=== PATIENT | female | born 1955 | race Caucasian/White ===

== ENCOUNTER → 2021-04-10 08:32 | Outpatient (CLI) | payer MEDICARE, OTHER, SELFPAY ==
[2021-04-10 22:09] LABS: COVID19 - ORCAS (NP or Nasal) Negative (Negative)
== END ==
PROVIDERS: PCP Family Medicine; Visit Provider Family Medicine
DX: Z20.822 Contact with and (suspected) exposure to COVID-19 (principal)
CPT/HCPCS: C9803; U0003

== ENCOUNTER → 2021-05-17 08:34 | Outpatient (CLI) | payer MEDICARE, OTHER, SELFPAY ==
[2021-05-17 19:18] LABS: Add Manual Diff / Slide Review NO; Basophils Absolute Auto 0 /uL (0-100); Basophils Percent Auto 0.9 % (0-2); Eosinophils Absolute Auto 200 /uL (0-450); Hematocrit 41.7 % (36-46); Hemoglobin 14.1 g/dL (12.0-16.0); Lymphocytes Absolute Auto 1700 /uL (1100-4500); Lymphocytes Percent Auto 31.6 % (25-40); Mean Corpuscular HGB Conc 33.9 % (30-36); Mean Corpuscular Hemoglobin 29.8 PG (26-34); Monocytes Absolute Auto 400 /uL (0-900); Monocytes Percent Auto 7.5 % (3-14); Neutrophils Absolute Auto 3100 /uL (1500-7000); Platelet Count 231 X10^3/uL (150-400); Red Blood Cell Count 4.74 X10^6/uL (4.0-5.2); Red Cell Distribution Width 12.7 % (11.6-14.8); White Blood Cell Count 5.5 X10^3/uL (4.5-11.0)
[2021-05-17 19:29] LABS: Alanine Aminotransferase 44 IU/L (<35); Albumin 4.3 g/dL (3.5-5.0); Albumin Globulin Ratio 1.5 (1.0-2.8); Alkaline Phosphatase 76 U/L (38-126); Aspartate Aminotransferase 37 IU/L (14-36); BUN Creatinine Ratio 14.8 (6-22); Bilirubin Total 0.5 mg/dL (0.2-1.3); Blood Urea Nitrogen 13 mg/dL (7-17); Calcium 9.4 mg/dL (8.4-10.2); Carbon Dioxide 30 mmol/L (22-32); Chloride 104 mmol/L (98-107); Cholesterol 145 mg/dL (140-199); Estimated Glomerular Filt Rate > 60.0 mL/min (>60); Globulin 2.8 g/dL (1.7-4.1); Glucose 89 mg/dL (80-110); HDL Cholesterol 37 mg/dL (40-60); HEMOLYSIS < 15 (0-50); LDL Cholesterol Calculated 78 mg/dL (<100); Potassium 4.3 mmol/L (3.4-5.1); Sodium 143 mmol/L (137-145); Total Protein 7.1 g/dL (6.3-8.2); Triglycerides 151 mg/dL (35-150)
[2021-05-17 19:31] LABS: Hemoglobin A1C% w Est Avg Glu 5.7 % (4.0-6.0)
[2021-05-17 19:57] LABS: TSH w/ Reflex to FT4 1.77 uIU/mL (0.47-4.68)
[2021-05-18 20:17] LABS: Hep C Virus Ab w/Reflex Quant NEGATIVE s/c (NEGATIVE)
== END ==
PROVIDERS: PCP Physician Assistant; Visit Provider Physician Assistant
DX: I10 Essential (primary) hypertension (principal); M47.812 Spondylosis without myelopathy or radiculopathy, cervical region; Z13.1 Encounter for screening for diabetes mellitus; R53.83 Other fatigue; Z13.220 Encounter for screening for lipoid disorders; R53.82 Chronic fatigue, unspecified; Z11.59 Encounter for screening for other viral diseases
CPT/HCPCS: 80053; 80061; 83036; 84443; 85025; 86803

== ENCOUNTER → 2021-05-19 10:19 | Outpatient (CLI) | payer MEDICARE, OTHER, SELFPAY ==
[2021-05-22 15:15] LABS: Fecal Immunochemical Test Negative (Negative)
== END ==
PROVIDERS: PCP Physician Assistant; Visit Provider Family Medicine
DX: Z12.11 Encounter for screening for malignant neoplasm of colon (principal)
CPT/HCPCS: 82274

== ENCOUNTER → 2024-09-09 09:35 | Outpatient (CLI) | payer MEDICARE, OTHER, SELFPAY ==
[2024-09-09 20:32] LABS: HEMOLYSIS < 15 (0-50); Iron 100 ug/dL (37-170)
[2024-09-09 20:33] LABS: Hemoglobin A1C% w Est Avg Glu 5.4 % (4.0-6.0)
[2024-09-09 20:34] LABS: Alanine Aminotransferase 22 IU/L (<35); Albumin 4.5 g/dL (3.5-5.0); Albumin Globulin Ratio 1.7 (1.0-2.8); Alkaline Phosphatase 76 U/L (38-126); Aspartate Aminotransferase 29 IU/L (14-36); BUN Creatinine Ratio 11.8 (6-22); Bilirubin Total 0.6 mg/dL (0.2-1.3); Blood Urea Nitrogen 10 mg/dL (7-17); Calcium 8.9 mg/dL (8.4-10.2); Carbon Dioxide 28 mmol/L (22-32); Chloride 104 mmol/L (98-107); Cholesterol 193 mg/dL (140-199); Estimated Glomerular Filt Rate > 60 mL/min (>60); Globulin 2.6 g/dL (1.7-4.1); Glucose 85 mg/dL (80-110); HDL Cholesterol 54 mg/dL (40-60); HEMOLYSIS 16 (0-50); LDL Cholesterol Calculated 115 mg/dL (<100); Potassium 4.1 mmol/L (3.4-5.1); Sodium 141 mmol/L (137-145); Total Protein 7.1 g/dL (6.3-8.2); Triglycerides 121 mg/dL (35-150)
[2024-09-09 20:39] LABS: Erythrocyte Sedimentation Rate 4 MM/HR (0-20)
[2024-09-09 20:44] LABS: NT-proBNP (BNP-Adult 18+) 194 pg/mL (<125)
[2024-09-09 20:45] LABS: LDL Cholesterol Direct 100 mg/dL (<100)
[2024-09-09 20:46] LABS: Free T4, Direct Thyroxine 1.07 ng/dL (0.78-2.19)
[2024-09-09 20:52] LABS: Percent Iron Saturation 34 % (15-50); Total Iron Binding Capacity 296 ug/dL (265-497); Transferrin 265 mg/dL (206-381)
[2024-09-09 21:00] LABS: Thyroid Stimulating Hormone 1.89 uIU/mL (0.47-4.68)
[2024-09-09 21:09] LABS: Ferritin 23 ng/mL (11-264)
[2024-09-09 21:36] LABS: Folate 8.2 ng/mL (2.76-20.0); Vitamin B12 275 pg/mL (239-931)
[2024-09-11 04:08] LABS: CRP, High Sensitivity 0.83 mg/L (0.00-3.00)
== END ==
PROVIDERS: Internal Medicine Cardiovascular Disease; PCP Physician Assistant
DX: I49.3 Ventricular premature depolarization (principal); E78.5 Hyperlipidemia, unspecified; D64.9 Anemia, unspecified; R06.02 Shortness of breath; R73.09 Other abnormal glucose; U09.9 Post COVID-19 condition, unspecified; I25.810 Atherosclerosis of coronary artery bypass graft(s) without angina pectoris; I25.10 Atherosclerotic heart disease of native coronary artery without angina pectoris
CPT/HCPCS: 80053; 80061; 82607; 82728; 82746; 82784; 83036; 83540; 83550; 83695; 83721; 83735; 83880; 83921; 84155; 84439; 84443; 84481; 85651; 86140; 86334

== ENCOUNTER → 2024-12-01 11:04 | Outpatient (CLI) | payer MEDICARE, OTHER, SELFPAY ==
[2024-12-01 13:01] LABS: Alanine Aminotransferase 32 IU/L (<35); Albumin 4.6 g/dL (3.5-5.0); Albumin Globulin Ratio 1.6 (1.0-2.8); Alkaline Phosphatase 74 U/L (38-126); Aspartate Aminotransferase 29 IU/L (14-36); BUN Creatinine Ratio 16.3 (6-22); Bilirubin Total 0.5 mg/dL (0.2-1.3); Blood Urea Nitrogen 13 mg/dL (7-17); Calcium 8.9 mg/dL (8.4-10.2); Carbon Dioxide 28 mmol/L (22-32); Chloride 104 mmol/L (98-107); Estimated Glomerular Filt Rate > 60 mL/min (>60); Globulin 2.9 g/dL (1.7-4.1); Glucose 86 mg/dL (70-99); HEMOLYSIS < 15 (0-50); Sodium 140 mmol/L (137-145); Total Protein 7.5 g/dL (6.3-8.2)
--- NOTE | 2024-12-01 14:37 | DI.CT.S_ITS ---
PROCEDURE: CT ABDOMEN PELVIS W CON INDICATIONS: RUQ sensation. hx cholecystectomy TECHNIQUE: After the administration of intravenous contrast, axial sections acquired from the lung bases to the pubic symphysis. Coronal and sagittal reformats were performed. For radiation dose reduction, the following was used: automated exposure control, adjustment of mA and/or kV according to patient size. COMPARISON: None. FINDINGS: Image quality: Diagnostic. Lower Chest: Hyperattenuating material within the distal esophagus and stomach. ABDOMEN: Liver: No solid mass. Gallbladder: Absent. Biliary ducts: No intrahepatic or extrahepatic biliary dilation, accounting for a post cholecystectomy state. Pancreas: No ductal dilation. Spleen: Size is within normal limits. Adrenal Glands: No adrenal nodules. Kidneys and Ureters: No hydronephrosis. No solid mass. No complex renal cystic lesion which requires follow up. Stomach and Bowel: Normal colonic caliber, without significant wall thickening. Normal appendix. No significant diverticular disease. Peritoneum: No abnormal intraperitoneal fluid. No free air. Ventral Wall: Small umbilical hernia containing fat. Abdominal Nodes: No retroperitoneal or mesenteric adenopathy by size criteria. Vessels: Aorta and inferior vena cava are normal in size. PELVIS: Pelvic Organs: Unremarkable. Bladder: No bladder wall thickening, accounting for underdistention. Pelvic Nodes: No enlarged lymph nodes. Miscellaneous: No inguinal hernias are seen. Bones: No aggressive osseous abnormality. Degenerative disc disease of the lumbar spine. IMPRESSION: Hyperattenuating material within the distal esophagus and stomach. Findings suggest gastroesophageal reflux and/or esophageal dysmotility. Cholecystectomy, without complication. No intrahepatic or extrahepatic biliary dilation, accounting for a post cholecystectomy state. Dictated by: Oni Solorzano M.D. on 12/02/2024 at 10:49 Approved by: Oni Solorzano M.D. on 12/02/2024 at 10:57
--- NOTE | 2024-12-01 14:37 | DI.US.S_ITS ---
PROCEDURE: US EXTREMITY NONVASC UPPER LT INDICATIONS: 2 LEFT ARM LUMPS - LEFT FOREARM SUPERIOR AND LEFT UPPER ARM INFERIOR TECHNIQUE: Real-time scanning was performed of the left arm, with image documentation. COMPARISON: None. FINDINGS: No sonographic abnormality identified in the areas of reported left arm lumps involving the left superior forearm and the inferior left upper arm. IMPRESSION: No sonographic abnormality. Decision to biopsy clinically palpable lesion should be based on clinical assessment. Dictated by: Paula Ceja MD, PhD on 12/02/2024 at 10:02 Approved by: Paula Ceja MD, PhD on 12/02/2024 at 10:28
[2024-12-03 16:09] LABS: Lipoprotein (a) 226.8 nmol/L (<75.0)
== END ==
PROVIDERS: PCP Family Medicine; Referring Provider Physician Assistant; Visit Provider Physician Assistant
DX: E78.00 Pure hypercholesterolemia, unspecified (principal); R22.32 Localized swelling, mass and lump, left upper limb; R04.2 Hemoptysis; R10.11 Right upper quadrant pain; Z90.49 Acquired absence of other specified parts of digestive tract; K42.9 Umbilical hernia without obstruction or gangrene; M51.369 Other intervertebral disc degeneration, lumbar region without mention of lumbar back pain or lower extremity pain
CPT/HCPCS: 36415; 74177; 76882; 80053; 83695; 84450; Q9967

== ENCOUNTER → 2025-02-15 11:58 | Outpatient (CLI) | payer MEDICARE, OTHER, SELFPAY | PROVIDERS: PCP Family Medicine; Visit Provider Family Medicine | DX: E78.00 Pure hypercholesterolemia, unspecified (principal) | CPT/HCPCS: 83695 ==

== ENCOUNTER → 2025-02-22 06:34 | Outpatient (ROUT) | payer MEDICARE, OTHER, SELFPAY | PROVIDERS: PCP Family Medicine; Visit Provider Family Medicine | DX: Z12.11 Encounter for screening for malignant neoplasm of colon (principal) | CPT/HCPCS: 82274 ==

== ENCOUNTER → 2025-06-17 09:31 | Outpatient (CLI) | payer MEDICARE, OTHER, SELFPAY ==
[2025-06-17 19:16] LABS: Hematocrit 40.4 % (36-46); Hemoglobin 13.7 g/dL (12.0-16.0); Mean Corpuscular HGB Conc 33.8 % (30-36); Mean Corpuscular Hemoglobin 29.4 PG (26-34); Mean Corpuscular Volume 87.1 fL (80-100); Platelet Count 226 X10^3/uL (150-400)
[2025-06-17 19:50] LABS: Vitamin D 25 Hydroxy (D3) 48.6 ng/mL (30.0-100.0)
[2025-06-17 20:00] LABS: Cortisol AM (Before 10AM) 5.89 ug/dL (4.46-22.7)
[2025-06-17 20:03] LABS: Ferritin 20 ng/mL (11-264)
[2025-06-17 20:32] LABS: Folate 8.9 ng/mL (2.76-20.0); Vitamin B12 339 pg/mL (239-931)
[2025-06-17 20:34] LABS: Eosinophils Percent Manual 1.0 % (2-4); Lymphocytes Percent Manual 37.0 % (25-45); Monocytes Percent Manual 4.0 % (2-11); Neutrophils Absolute Manual 3422 /uL (3000-5900); RBC Morphology Normal Morphology; Segmented Neutrophils Percent 58.0 % (38-70); Total Cells Counted 100
== END ==
PROVIDERS: PCP Family Medicine; Referring Provider Family Medicine; Visit Provider Family Medicine
DX: R74.8 Abnormal levels of other serum enzymes (principal); I10 Essential (primary) hypertension; E55.9 Vitamin D deficiency, unspecified; R53.82 Chronic fatigue, unspecified; R19.8 Other specified symptoms and signs involving the digestive system and abdomen; R79.0 Abnormal level of blood mineral; E53.8 Deficiency of other specified B group vitamins; M25.50 Pain in unspecified joint
CPT/HCPCS: 82306; 82533; 82607; 82728; 82746; 85025; 85651; 86038; 86140